=== PATIENT | male | born 1985 | race Caucasian/White ===

== ENCOUNTER 2018-02-09 13:08 | Day surgery (SDC) | payer OTHER ==
[2018-02-09] MEDS ORDERED: PROPOFOL 200 MG/20 ML VIAL As Ordered ×2 (13:38→15:03)
[2018-02-09] MEDS: NS 1,000 ML IV (13:54)
== END 2018-02-09 15:42 | disposition home or self-care (01) ==
LOC: M OPP 13:08
DX: R13.10 Dysphagia, unspecified (principal); R12 Heartburn; K22.2 Esophageal obstruction; K22.8 Other specified diseases of esophagus; K44.9 Diaphragmatic hernia without obstruction or gangrene
CPT/HCPCS: 43249

== ENCOUNTER → 2021-07-09 | Outpatient (CLI) | payer OTHER ==
[~2021-07-09] MED LIST: OMEP40CA4 PO; no medications
== END ==
LOC: M LABSMTC 10:32
PROVIDERS: ATTEND Anesthesiology
DX: Z01.812 Encounter for preprocedural laboratory examination (principal); Z20.822 Contact with and (suspected) exposure to COVID-19

== ENCOUNTER 2021-07-13 13:18 | Day surgery (SDC) | payer OTHER ==
[~2021-07-13] VITALS: Ht 188 cm; Wt 138.8 kg
[~2021-07-13 13:18] MED LIST changes: +NS 1,000 ML IV ONE
[2021-07-13] MEDS ORDERED: LIDOCAINE 2% 100MG/5ML SDV (FOR ANES.) As Ordered ONE (14:46)
[2021-07-13] MEDS ORDERED: propofoL 200 MG/20 ML VIAL As Ordered ONE (14:46)
[2021-07-13] MEDS ORDERED: fentaNYL 100 MCG/2 ML INJECTION (J3010) As Ordered ONE (14:47)
--- NOTE | 2021-07-13 15:01 | ROOR ---
Patient Name: Tonio Peterson Procedure Date: 07/13/2021 2:43 PM Date of : 1985 Age: 35 Room: [id number] Gender: Male Note Status: Finalized Procedure: Upper GI endoscopy Indications: Surveillance for malignancy due to personal history of Pond's esophagus Providers: Osvaldo Palomares MD Referring MD: Irwin Wynn DO Requesting Provider: Medicines: Monitored Anesthesia Care Complications: No immediate complications. Procedure: Pre-Anesthesia Assessment: - The heart rate, respiratory rate, oxygen saturations, blood pressure, adequacy of pulmonary ventilation, and response to care were monitored throughout the procedure. The Endoscope was introduced through the mouth, and advanced to the second part of duodenum. The upper GI endoscopy was accomplished without difficulty. The patient tolerated the procedure well. Findings: The Z-line was variable and was found 39 cm from the incisors. Biopsies were taken with a cold forceps for histology. The examined esophagus was normal. A small hiatal hernia was present. The exam of the stomach was otherwise normal. The examined duodenum was normal. Impression: - Z-line variable, 39 cm from the incisors. Biopsied. - Otherwise normal esophagus. - Small hiatal hernia, otherwise normal stomach. - Normal duodenum. Recommendation: - Use Prilosec (omeprazole) 40 mg PO daily indefinitely. - Continue present medications. - Repeat upper endoscopy in 3 years for surveillance. Procedure Code(s): --- Professional --- 80564, Esophagogastroduodenoscopy, flexible, transoral; with biopsy, single or multiple Diagnosis Code(s): --- Professional --- K44.9, Diaphragmatic hernia without obstruction or gangrene K22.70, Pond's esophagus without dysplasia K22.8, Other specified diseases of esophagus CPT copyright 2019 [employer]. All rights reserved. The codes documented in this report are preliminary and upon canvas cutter hand review may be revised to meet current compliance requirements. Osvaldo Palomares MD Osvaldo Palomares MD 07/13/2021 3:01:23 PM Electronically signed by Osvaldo Palomares MD Number of Addenda: 0 Note Initiated On: 07/13/2021 2:43 PM Estimated Blood Loss: Estimated blood loss: none.
[2021-07-13 15:25] VITALS: BP 129/60
== END 2021-07-13 15:58 | disposition home or self-care (01) ==
LOC: M OPP 13:18
PROVIDERS: ATTEND Internal Medicine Gastroenterology
DX: K22.8 Other specified diseases of esophagus (principal); K44.9 Diaphragmatic hernia without obstruction or gangrene; K22.70 Barrett's esophagus without dysplasia; Z91.013 Allergy to seafood
CPT/HCPCS: 43239; 88305; J3010

== ENCOUNTER 2025-01-18 11:48 | Day surgery (SDC) | payer OTHER ==
[~2025-01-18] VITALS: Ht 188 cm; Wt 147.8 kg
[~2025-01-18 11:48] MED LIST changes: +ATOR40TA75 PO; -NS 1,000 ML IV ONE; +VITA200016 PO
[2025-01-18] MEDS ORDERED: propofoL 200 MG/20 ML VIAL As Ordered ONE (13:32)
[2025-01-18] MEDS ORDERED: LIDOCAINE 2% 100MG/5ML SDV (FOR ANES.) As Ordered ONE (13:32)
[2025-01-18] MEDS ORDERED: fentaNYL 100 MCG/2 ML INJECTION As Ordered ONE (13:33)
[2025-01-18 14:02] VITALS: BP 130/66; O2SAT 99
== END 2025-01-18 14:17 | disposition home or self-care (01) ==
LOC: M OPP 11:48
PROVIDERS: ATTEND Internal Medicine Gastroenterology
DX: K22.70 Barrett's esophagus without dysplasia (principal); K22.89 Other specified disease of esophagus; K44.9 Diaphragmatic hernia without obstruction or gangrene; Z79.899 Other long term (current) drug therapy; Z91.013 Allergy to seafood
CPT/HCPCS: 43239; 88305; J3010